=== PATIENT | female | born 1950 | race Caucasian/White ===

== ENCOUNTER 2019-10-26 15:32 | Outpatient (CLI) | payer MEDICARE, OTHER ==
--- NOTE | 2019-10-26 16:34 | XRAY Report ---
PROCEDURE: Lumbar Spine 2 View INDICATIONS: RADICULOPATHY LUMBAR REGION, CERVICALGIA TECHNIQUE: 2 views of the lumbar spine were acquired. COMPARISON: None. FINDINGS: Bones: 5 [id number] vertebrae are present. There is grade 1 degenerative anterolisthesis of L4 on L5 which measures approximately 1 cm. The other vertebral bodies are normally aligned. Severe disc height loss at L4-L5 and L5-S1. Multilevel facet arthropathy. No vertebral body compression fracture s. No suspicious bony lesions. Soft tissues: Overlying bowel gas pattern is normal. No suspicious soft tissue calcifications. IMPRESSION: Multilevel degenerative disc disease and facet arthropathy. Grade 1 anterolisthesis of L 4 on L5. No evidence acute bony abnormality of the lumbar spine. If clinical suspicion and/or symptoms persist, further assessment with repeat plain films or advanced imaging (e.g., CT, MRI, or bone scan) may be helpful for further assessment. Reviewed by: Gerber Romero MD on 10/26/2019 4:33 PM PDT Approved by: Gerber Romero MD on 10/26/2019 4:33 PM PDT Station ID: [id number]
--- NOTE | 2019-10-26 16:40 | XRAY Report ---
PROCEDURE: Cervical Spine 2 View INDICATIONS: RADICULOPATHY LUMBAR REGION, CERVICALGIA TECHNIQUE: 4 view(s) of the cervical spine were acquired. COMPARISON: None. FINDINGS: Bones: No fractures or dislocations to the T1 level. The lateral masses of C1 appear intact on the odontoid view. No suspicious bony lesions. Multilevel cervical corpectomy extending from C4 through C7. ACDF with plate and screw fixation, with screws in C3 and C7. Multilevel posterior lateral rachel a nd pedicle screw fixation. No evidence of hardware failure or loosening. Soft tissues: No prevertebral soft tissue swelling. IMPRESSION: Extensive previous cervical surgery with no evidence of hardware failure or loosening. N o evidence of acute bony abnormality of the cervical spine. Reviewed by: Gerber Romero MD on 10/26/2019 4:39 PM PDT Approved by: Gerber Romero MD on 10/26/2019 4:39 PM PDT Station ID: [id number]
== END 2019-10-26 15:33 | disposition home or self-care (01) ==
LOC: DI 15:32
PROVIDERS: ATTEND Nurse Practitioner Family
DX: M54.2 Cervicalgia (principal); M43.16 Spondylolisthesis, lumbar region; M51.36 Other intervertebral disc degeneration, lumbar region; M51.37 Other intervertebral disc degeneration, lumbosacral region; M47.816 Spondylosis without myelopathy or radiculopathy, lumbar region
CPT/HCPCS: 72040; 72100

== ENCOUNTER 2021-01-24 14:33 | Outpatient (CLI) | payer MEDICARE, OTHER ==
[2021-01-24 14:53] LABS: BASOPHILS % (AUTO) 0.5 %; EOSINOPHILS # (AUTO) 0.1 10^3/uL (0.0-0.7); EOSINOPHILS % (AUTO) 1.3 %; HCT - HEMATOCRIT 41.2 % (37.0-47.0); HGB - HEMOGLOBIN 13.9 g/dL (12.0-16.0); LYMPHOCYTES # (AUTO) 1.3 10^3/uL (1.5-3.5); LYMPHOCYTES % (AUTO) 16.6 %; MEAN CORPUSCULAR HEMOGLOBIN 31.8 pg (27.0-31.0); MEAN CORPUSCULAR HGB CONC 33.7 g/dL (32.0-36.0); MEAN CORPUSCULAR VOLUME 94.3 fL (81.0-99.0); MONOCYTES # (AUTO) 0.6 10^3/uL (0.0-1.0); MONOCYTES % (AUTO) 7.2 %; NEUTROPHILS # (AUTO) 5.8 10^3/uL (1.5-6.6); NEUTROPHILS % (AUTO) 74.1 %; PLT - PLATELET COUNT 219 10^3/uL (130-450); RED BLOOD COUNT 4.37 10^6/uL (4.20-5.40); RED CELL DISTRIBUTION WIDTH 13.2 % (12.0-15.0); WHITE BLOOD COUNT 7.9 x10^3/uL (4.8-10.8)
[2021-01-24 15:12] LABS: ALBUMIN/GLOBULIN RATIO 1.4 (1.0-2.2); ALKALINE PHOSPHATASE 73 IU/L (42-121); ALT ALANINE AMINOTRANSFERASE 14 IU/L (10-60); AST ASPARTATE AMINOTRANSFERASE 15 IU/L (10-42); BILIRUBIN,TOTAL 0.7 mg/dL (0.2-1.0); BUN - BLOOD UREA NITROGEN 18 mg/dL (6-20); CALCIUM 9.5 mg/dL (8.5-10.3); CARBON DIOXIDE - CO2 28 mmol/L (21-32); CHLORIDE 104 mmol/L (101-111); CHOL/HDL RATIO 3.2 (<4.4); CHOLESTEROL 294 mg/dL; CREATININE 0.9 mg/dL (0.4-1.0); GFR - MDRD 62 (>89); GLUCOSE 95 mg/dL (70-100); HDL CHOLESTEROL 91 mg/dL; LDL CHOLESTEROL,CALCULATED 181 mg/dL; SODIUM 141 mmol/L (135-145); TOTAL PROTEIN 6.9 g/dL (6.7-8.2); TRIGLYCERIDES 108 mg/dL; VLDL CHOLESTEROL 22 mg/dL
[2021-01-24 16:07] LABS: BILIRUBIN,URINE NEGATIVE (NEGATIVE); CLARITY,URINE SL. CLOUDY (CLEAR); GLUCOSE, URINE (UA) NEGATIVE (NEGATIVE); KETONES,URINE (UA) NEGATIVE (NEGATIVE); LEUKOCYTE ESTERASE, URINE NEGATIVE (NEGATIVE); NITRITE,URINE NEGATIVE (NEGATIVE); OCCULT BLOOD,URINE SMALL (NEGATIVE); PROTEIN,URINE NEGATIVE (NEGATIVE); UROBILINOGEN,URINE 0.2 (NORMAL) E.U./dL (NORMAL)
== END 2021-01-24 14:34 | disposition home or self-care (01) ==
LOC: LAB 14:33
PROVIDERS: ATTEND Nurse Practitioner Family
DX: N95.0 Postmenopausal bleeding (principal); N93.9 Abnormal uterine and vaginal bleeding, unspecified; E78.00 Pure hypercholesterolemia, unspecified
CPT/HCPCS: 36415; 80053; 80061; 81003; 83721; 85025; 87086

== ENCOUNTER 2021-02-19 12:00 | Outpatient (CLI) | payer MEDICARE, OTHER | END 2021-02-19 12:01 | disposition critical access hospital (66) | LOC: EMS 12:00 | DX: R11.10 Vomiting, unspecified (principal); R44.3 Hallucinations, unspecified; R30.0 Dysuria; R61 Generalized hyperhidrosis | CPT/HCPCS: A0425; A0427 ==

== ENCOUNTER 2021-02-19 13:01 | Emergency (ER) | payer MEDICARE, OTHER ==
--- NOTE | 2021-02-19 13:11 | ED Physician Documentation ---
History of Present Illness - Stated complaint Stated Complaint: VOMITING/WEAKNESS - History obtained from History obtained from: Patient, EMS - Additonal information Additional information: 70-year-old woman with dementia but lives alone, presents by ambulance for potential UTI with sepsis. Was diagnosed with a UTI on January 24 or sent . Subsequent culture grew 10-50,000 colonies of polymicrobial growth. She was started on Bactrim, 3-day course. The prescription bottle was filled on the . That said she states she just finished yesterday, so the math does not quite add up. Over the last few days has developed chills and occasional visual hallucinations. She also has urinary frequency but no dysuria. Her stomach feels full but not painful. She denies new cough or shortness of breath noting that she always has a cough related to allergies. Review of Systems Ten Systems: 10 systems reviewed and negative Constitutional: reports: Chills, Fatigue. denies: Fever Cardiac: denies: Chest pain / pressure, Palpitations Respiratory: reports: Cough (Chronic). denies: Dyspnea GI: denies: Nausea, Vomiting, Diarrhea : reports: Frequency. denies: Dysuria PD PAST MEDICAL HISTORY - Present Medications Home Medications: Ambulatory Orders Medication Instructions Recorded Confirmed Ciprofloxacin [Cipro] 250 mg PO Q12H #10 tablet 02/19/21 Escitalopram [Lexapro] 40 mg PO DAILY 02/19/21 02/19/21 Fluoxetine HCl [Prozac] 80 mg PO DAILY 02/19/21 02/19/21 lamoTRIgine [Lamictal Xr] 300 mg PO HS 02/19/21 02/19/21 - Allergies Allergies/Adverse Reactions: Allergies Allergy/AdvReac Type Severity Reaction Status Date / Time Cephalosporins Allergy Unknown Verified 02/19/21 13:14 Penicillins Allergy Unknown Verified 02/19/21 13:14 PD ED PE NORMAL - Vitals Vital signs reviewed: Yes - General General: No acute distress, Other (She is alert and oriented to person and place but not time, decent for events.) - HEENT HEENT: PERRL, EOMI - Neck Neck: Supple, no meningeal sign, No bony TTP - Cardiac Cardiac: RRR, No murmur - Respiratory Respiratory: No respiratory distress, Clear bilaterally - Abdomen Abdomen: Normal bowel sounds, Soft, Non tender - Back Back: No CVA TTP, No spinal TTP - Derm Derm: Normal color, Warm and dry - Extremities Extremities: No edema, No calf tenderness / cord Results - Vitals Vitals: Vital Signs - 24 hr 02/19/21 02/19/21 13:10 15:14 Temperature 36.8 C 36.7 C Heart Rate 89 86 Respiratory 16 15 Rate Blood Pressure 123/53 L 150/87 H O2 Saturation 98 99 Oxygen O2 Source Room air - Labs Labs: Laboratory Tests 02/19/21 02/19/21 02/19/21 13:18 13:18 13:18 WBC 6.6 RBC 4.31 Hgb 13.8 Hct 40.3 MCV 93.5 MCH 32.0 H MCHC 34.2 RDW 13.5 Plt Count 215 MPV 8.0 Neut # (Auto) 5.3 Lymph # (Auto) 0.8 L Dane # (Auto) 0.5 Eos # (Auto) 0.0 Baso # (Auto) 0.0 Absolute Nucleated RBC 0.00 Nucleated RBC % 0.0 Sodium 134 L Potassium 3.7 Chloride 103 Carbon Dioxide 22 Anion Gap 9.0 BUN 19 Creatinine 0.8 Estimated GFR (MDRD) 71 L Glucose 108 H Lactic Acid 1.8 Calcium 9.1 Urine Color Urine Clarity Urine pH Ur Specific Stacy Urine Protein Urine Glucose (UA) Urine Ketones Urine Occult Blood Urine Nitrite Urine Bilirubin Urine Urobilinogen Ur Leukocyte Esterase Urine RBC Urine WBC Ur Epithelial Cells Ur Squamous Epith Cells Urine Bacteria Ur Microscopic Review Urine Culture Comments Nasal Adenovirus (PCR) Nasal B. parapertussis DNA (PCR) Nasal Coronavir 229E PCR Nasal Coronavir HKU1 PCR Nasal Coronavir NL63 PCR Nasal Coronavir OC43 PCR Nasal Enterovir/Rhinovir PCR Nasal Influenza B PCR Nasal Influenza A PCR Nasal Parainfluen 1 PCR Nasal Parainfluen 2 PCR Nasal Parainfluen 3 PCR Nasal Parainfluen 4 PCR Nasal RSV (PCR) Nasal B.pertussis DNA PCR Nasal C.pneumoniae (PCR) Balbir Human Metapneumo PCR Nasal M.pneumoniae (PCR) Nasal SARS-CoV-2 (PCR) 02/19/21 02/19/21 13:52 14:35 WBC RBC Hgb Hct MCV MCH MCHC RDW Plt Count MPV Neut # (Auto) Lymph # (Auto) Dane # (Auto) Eos # (Auto) Baso # (Auto) Absolute Nucleated RBC Nucleated RBC % Sodium Potassium Chloride Carbon Dioxide Anion Gap BUN Creatinine Estimated GFR (MDRD) Glucose Lactic Acid Calcium Urine Color YELLOW Urine Clarity CLEAR Urine pH 6.0 Ur Specific Stacy >=1.030 H Urine Protein NEGATIVE Urine Glucose (UA) NEGATIVE Urine Ketones 40 H Urine Occult Blood SMALL H Urine Nitrite NEGATIVE Urine Bilirubin NEGATIVE Urine Urobilinogen 1 (NORMAL) Ur Leukocyte Esterase SMALL H Urine RBC 11-25 H Urine WBC 6-10 H Ur Epithelial Cells FEW Transitional Ur Squamous Epith Cells MOD Squamous H Urine Bacteria Few Ur Microscopic Review INDICATED Urine Culture Comments NOT INDICATED Nasal Adenovirus (PCR) NOT DETECTED Nasal B. parapertussis DNA (PCR) NOT DETECTED Nasal Coronavir 229E PCR NOT DETECTED Nasal Coronavir HKU1 PCR NOT DETECTED Nasal Coronavir NL63 PCR NOT DETECTED Nasal Coronavir OC43 PCR NOT DETECTED Nasal Enterovir/Rhinovir PCR NOT DETECTED Nasal Influenza B PCR NOT DETECTED Nasal Influenza A PCR NOT DETECTED Nasal Parainfluen 1 PCR NOT DETECTED Nasal Parainfluen 2 PCR NOT DETECTED Nasal Parainfluen 3 PCR NOT DETECTED Nasal Parainfluen 4 PCR NOT DETECTED Nasal RSV (PCR) NOT DETECTED Nasal B.pertussis DNA PCR NOT DETECTED Nasal C.pneumoniae (PCR) NOT DETECTED Balbir Human Metapneumo PCR NOT DETECTED Nasal M.pneumoniae (PCR) NOT DETECTED Nasal SARS-CoV-2 (PCR) NOT DETECTED PD MEDICAL DECISION MAKING - ED course ED course: 70-year-old woman presents with chills in the setting of recent UTI. She is d emented and lives alone. Her vital signs are unremarkable as is her exam other than modest dementia. Her lab work is relatively unremarkable without evidence of leukocytosis, lactic acidosis. Urine is contaminated but does show leukocyte esterase white cells and red cells. Probably worth treating given her complaints of urinary frequency. That said she is certainly not septic and does not fit criteria for admission for the UTI per se. Her dementia and mental status is more consistent with exactly that, dementia than it is with encephalopathy or delirium. We will asked the social media specialist to see her to assess for safety given that she lives alone. We will check her for Covid given the Lymphopenia. Covid was negative. Social work saw her, reach out to family who is helping at home. Further efforts at in-home care versus placement were declined by the patient. I asked the social work place and APS referral as well. Departure - Departure Disposition: Home, Self Care Clinical Impression: Urinary tract infection Qualifiers: Urinary tract infection type: site unspecified Hematuria presence: without hematuria Qualified Code(s): N39.0 - Urinary tract infection, site not specified Dementia Qualifiers: Dementia type: unspecified type Dementia behavioral disturbance: without behavioral disturbance Qualified Code(s): F03.90 - Unspecified dementia without behavioral disturbance Condition: Good Record reviewed to determine appropriate education?: Yes Instructions: Urinary Tract Infecs Women, ED Dementia Caregiver Support Prescriptions: Ciprofloxacin [Cipro] 250 mg PO Q12H #10 tablet Comments: We found you to have a mild UTI today, no evidence of sepsis or other serious illness. You were negative for Covid. We are concerned about your ability to live alone given that your memory seems to be failing you. Please consider what you will do and what will happen if your memory continues to go downhill which it likely will. To that end we are also filing a report with Adult Protective Services so that they can check on you and we have contacted your family as well. Follow-up with your primary care physician, next available appointment. Return for new or worsening symptoms.
[2021-02-19 13:28] LABS: BASOPHILS % (AUTO) 0.3 %; EOSINOPHILS % (AUTO) 0.3 %; HCT - HEMATOCRIT 40.3 % (37.0-47.0); HGB - HEMOGLOBIN 13.8 g/dL (12.0-16.0); LYMPHOCYTES # (AUTO) 0.8 10^3/uL (1.5-3.5); LYMPHOCYTES % (AUTO) 11.8 %; MEAN CORPUSCULAR HGB CONC 34.2 g/dL (32.0-36.0); MEAN CORPUSCULAR VOLUME 93.5 fL (81.0-99.0); MONOCYTES # (AUTO) 0.5 10^3/uL (0.0-1.0); NEUTROPHILS # (AUTO) 5.3 10^3/uL (1.5-6.6); NEUTROPHILS % (AUTO) 80.3 %; PLT - PLATELET COUNT 215 10^3/uL (130-450); RED BLOOD COUNT 4.31 10^6/uL (4.20-5.40); RED CELL DISTRIBUTION WIDTH 13.5 % (12.0-15.0); WHITE BLOOD COUNT 6.6 x10^3/uL (4.8-10.8)
[2021-02-19 13:59] LABS: GLUCOSE, URINE (UA) NEGATIVE (NEGATIVE); KETONES,URINE (UA) 40 mg/dL (NEGATIVE); LEUKOCYTE ESTERASE, URINE SMALL (NEGATIVE); NITRITE,URINE NEGATIVE (NEGATIVE); OCCULT BLOOD,URINE SMALL (NEGATIVE); PROTEIN,URINE NEGATIVE (NEGATIVE); UROBILINOGEN,URINE 1 (NORMAL) E.U./dL (NORMAL)
[2021-02-19 14:04] LABS: BILIRUBIN,URINE NEGATIVE (NEGATIVE); CLARITY,URINE CLEAR (CLEAR); ICTOTEST,URINE NEGATIVE
[2021-02-19 14:15] LABS: BACTERIA,URINE Few /HPF (None Seen); EPITHELIAL CELLS,UR FEW Transitional /HPF (<= Few); SQUAMOUS EPITHELIAL CELL,UR MOD Squamous (<= Few)
[2021-02-19 14:24] LABS: CALCIUM 9.1 mg/dL (8.5-10.3); CREATININE 0.8 mg/dL (0.4-1.0); POTASSIUM 3.7 mmol/L (3.5-5.0)
[2021-02-19] MEDS ORDERED: CIPROFLOXACIN 250 MG TABLET PO STA (14:36)
[2021-02-19 15:36] LABS: B. PARAPERTUSSIS- RESP PCR PAN NOT DETECTED; B. PERTUSSIS- RESP PCR PANEL NOT DETECTED; C. PNEUMONIAE- RESP PCR PANEL NOT DETECTED; CORONAVIRUS 229E-RESP PCR NOT DETECTED; CORONAVIRUS HKU1-RESP PCR NOT DETECTED; CORONAVIRUS NL63-RESP PCR NOT DETECTED; CORONAVIRUS OC43-RESP PCR NOT DETECTED; HUMAN METAPNEUMOVIRUS NOT DETECTED; INFLUENZA A- RESP PCR PANEL NOT DETECTED; INFLUENZA B - RESP PCR PANEL NOT DETECTED; M. PNEUMONIAE- RESP PCR PANEL NOT DETECTED; PARAINFLUENZA VIRUS 1 NOT DETECTED; PARAINFLUENZA VIRUS 2 NOT DETECTED; PARAINFLUENZA VIRUS 3 NOT DETECTED; PARAINFLUENZA VIRUS 4 NOT DETECTED; RHINOVIRUS/ENTEROVIRUS NOT DETECTED; RSV- RESP PCR PANEL NOT DETECTED; SARS-CoV-2 -RESP PCR PANEL NOT DETECTED
[2021-02-19 17:05] VITALS: BP 135/75
== END 2021-02-19 16:55 | disposition home or self-care (01) ==
LOC: EDUNIT# → ED 13:01
DX: N39.0 Urinary tract infection, site not specified (principal); F03.90 Unspecified dementia, unspecified severity, without behavioral disturbance, psychotic disturbance, mood disturbance, and anxiety; Z20.822 Contact with and (suspected) exposure to COVID-19
CPT/HCPCS: 36415; 80048; 81001; 83605; 85025; 87631; 99283; 99284; A9270; 0202U; 81003; 87086

== ENCOUNTER 2023-01-03 08:04 | Outpatient (CLI) | payer MEDICARE, OTHER | END 2023-01-03 08:05 | disposition critical access hospital (66) | LOC: EMS 08:04 | DX: M54.50 Low back pain, unspecified (principal); W18.39XA Other fall on same level, initial encounter; Y93.E1 Activity, personal bathing and showering; Y92.091 Bathroom in other non-institutional residence as the place of occurrence of the external cause | CPT/HCPCS: A0425; A0429 ==

== ENCOUNTER 2023-01-03 08:30 | Emergency (ER) | payer MEDICARE, OTHER ==
--- NOTE | 2023-01-03 09:06 | ED Physician Documentation ---
PD HPI BACK PAIN - Stated complaint Stated Complaint: R LOW BACK PX - Chief complaint Chief Complaint: Trauma Ch/Bk - History obtained from History obtained from: Patient - Additional information Additional information: Patient is a 72-year-old female presenting for evaluation of right lower back pain that is been present for 2 days since she slipped and fell in the shower. Patient reports falling due to water in the tub and fell onto her backside. She denies hitting her head or having LOC. She called for help from staff at her assisted living facility and they helped her up. Since then she reports increased pain to the area. She has been using Flexeril without any improvement. Pain does not radiate elsewhere. She denies saddle anesthesia, bowel or bladder incontinence. She does not take a blood thinner. 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 : None HEENT: None Psych: Depression Derm: None - Past Surgical History Past Surgical History: Yes General: Cholecystectomy Ortho: Spine surgery - Present Medications Home Medications: Ambulatory Orders Medication Instructions Recorded Confirmed Escitalopram [Lexapro] 40 mg PO DAILY 02/19/21 01/03/23 Fluoxetine HCl [Prozac] 80 mg PO DAILY 02/19/21 01/03/23 lamoTRIgine [Lamictal Xr] 300 mg PO HS 02/19/21 01/03/23 Gabapentin 400 mg PO DAILY 01/03/23 01/03/23 HYDROcod/ACETAM 5/325 [Jarales 5/325] 1 tablet PO Q6H PRN #14 tablet 01/03/23 Lidocaine Patch 5% [Lidoderm Patch] 1 patch TOP DAILY PRN #10 patch 01/03/23 - Allergies Allergies/Adverse Reactions: Allergies Allergy/AdvReac Type Severity Reaction Status Date / Time Cephalosporins Allergy Unknown Verified 02/19/21 13:14 Penicillins Allergy Unknown Verified 02/19/21 13:14 - Social History Does the pt smoke?: No Smoking Status: Never smoker Does the pt drink ETOH?: No Does the pt have substance abuse?: No PD ED PE NORMAL - General General: Alert and oriented X 3, No acute distress, Well developed/nourished - HEENT HEENT: Atraumatic, PERRL, EOMI - Neck Neck: Supple, no meningeal sign, No bony TTP, C-Spine cleared by NEXUS criteria - Cardiac Cardiac: RRR, No murmur, Strong equal pulses - Respiratory Respiratory: No respiratory distress, Clear bilaterally - Abdomen Abdomen: Soft, Non tender, Non distended - Back Back: No spinal TTP, Other (Right paralumbar tenderness to palpation with no deformities noted) - Derm Derm: Warm and dry - Extremities Extremities: No deformity, No tenderness to palpate, Other (Good range of motion of right hip) - Neuro Neuro: Alert and oriented X 3, No motor deficit, No sensory deficit, Normal speech Eye Opening: Spontaneous Motor: Obeys Commands Verbal: Oriented GCS Score: 15 Results - Vitals Vitals: Vital Signs - 24 hr 01/03/23 01/03/23 01/03/23 08:35 08:37 10:37 Temperature 36.5 C Heart Rate 85 83 83 Respiratory 14 14 15 Rate Blood Pressure 143/78 H 105/68 126/58 L O2 Saturation 96 95 92 01/03/23 01/03/23 01/03/23 10:58 12:00 13:45 Temperature 36.8 C Heart Rate 81 81 78 Respiratory 20 15 20 Rate Blood Pressure 126/58 L 120/63 122/72 O2 Saturation 97 98 99 Oxygen O2 Source Room air PD Medical Decision Making - ED course Complexity details: reviewed results, re-evaluated patient, d/w patient ED course: Patient is a 72-year-old female presenting for evaluation of back pain after a fall 2 days ago that appears to be a slip and fall. No reported head injury or LOC and she is not on a blood thinner. She does have point tenderness to the right lower back. She has good range of motion of bilateral hips. Due to prior hip surgery I did obtain an x-ray of the right hip which shows hardware intact. A CT of the L-spine was also obtained which shows a subacute L1 compression fracture. This correlates to her area of pain. Patient did have improvement in her symptoms with IM Dilaudid and oral pain medication and was able to ambulate with a walker here. She will return to her assisted living facility and was counseled on need for close follow-up as well as concerning symptoms to return for. Departure - Departure Disposition: 01 Home, Self Care Clinical Impression: Compression fracture of L1 lumbar vertebra Condition: Stable Instructions: ED Fx Comp Vertebral Follow-Up: RIOS CONNER ARNP [Primary Care Provider] - Prescriptions: Lidocaine Patch 5% [Lidoderm Patch] 1 patch TOP DAILY PRN #10 patch PRN Reason: pain HYDROcod/ACETAM 5/325 [Jarales 5/325] 1 tablet PO Q6H PRN #14 tablet PRN Reason: Pain Comments: It appears that you have a compression fracture at L1 which is likely the reason for your pain. I am sending a prescription of pain medications to [facility] in [place]. You may feel more steady using a walker while this heals. I would recommend close follow-up with your primary care provider. I am prescribing a short course of narcotic pain medication for you. These are potentially dangerous and addictive medications that should be used carefully. These medications may constipate you. Take an wgvo-mhp-kdavrdy stool softener (docusate) twice daily with plenty of water while taking these medications. If you go 24 hours without a bowel movement, take [id number] miralax, per package instructions. Do not drink or drive while taking these medications. If you received narcotic or sedating medications while in the emergency department, do not drive for 24 hours. Store this medication in a safe, secure place and out of reach of children. It is a violation of federal law to give or sell this medication to another person or to use in a manner other than prescribed. The ED will not refill narcotic prescriptions, including prescriptions lost or stolen. To dispose of unwanted medications: 1. [facility] at [address] in [place] has a medication drop box. They accept prescription medications (in pill form) Saturday through Saturday 9:00 a.m. to 5:00 p.m. 2. The [facility] [place] [employer] accepts prescription medications (in pill form only) for disposal year round. Call for more information. 3. Contact the [facility] for the next [facility] sponsored prescription drug collection event. , [phone], or [phone]; Note that many narcotic pain relievers also contain Tylenol/acetaminophen. Please ensure that your total dose of acetaminophen from all sources does not exceed 3 g (3000 mg) per day. IMPRESSION: Suspected subacute compression deformity at L1. Recommend correlation of point tenderness. Forms: PCP List Discharge Date/Time: 01/03/23 13:46
--- OUTSIDE RECORDS SUMMARY | 2023-01-03 09:20 | EXTERNAL MEDICAL SUMMARY RPT | Continuity of Care Document ---
Author Name Unknown Address [address] [place] [address] Phone Organization Reading Address [address] [place] [id number] Phone Allergies and Intolerances date description facility reaction severity (no date) OPIOIDS - MORPHINE ANALOGUES [facility] Alisia Joseph (no reaction) (no severity) (no date) Anaphylaxis [facility] (no reaction) (no severity) (no date) Itching [facility] (no reaction) (no severity) (no date) PENICILLINS [facility] (no reaction) (no severity) (no date) CEPHALOSPORINS [facility] (no reaction) (no severity) Medications date description facility 2022-10-28 00:00 oxycodone hcl 5 mg oral tablet [facility] 2022-10-29 00:00 lidocaine 0.04 mg/mg medicated patch [facility] 2022-11-05 00:00 lamotrigine 150 mg oral tablet [facility] 2022-12-06 00:00 lamotrigine 150 mg oral tablet [facility] 2022-10-29 00:00 magnesium oxide 400 mg oral tab let [facility] 2022-10-29 00:00 vitamin d3 1000 unt oral tablet [facility] 2022-10-28 00:00 melatonin 1 mg oral tablet [facility] 2022-10-28 00:00 alprazolam 0.25 mg oral tablet [facility] 2022-12-06 00:00 ciprofloxacin 500 mg oral table t [facility] 2022-10-29 00:00 ferrous sulfate 325 mg (iron 65 mg) oral tablet [facility] 2022-10-28 00:00 gabapentin 300 mg oral capsule [facility] 2022-10-28 00:00 acetaminophen 325 mg oral table t [facility] 2022-11-05 00:00 fluoxetine 40 mg [facility]:00 fluoxetine 40 mg oral capsule F [facility] 2022-10-28 00:00 pantoprazole sodium 40 mg delayed release oral tablet [facility] 2022-12-06 00:00 pantoprazole sodium 40 mg delayed release oral tablet [facility] 2022-11-05 00:00 escitalopram (as esc italopram oxalate) 20 mg oral tablet [facility] 2022-12-06 00:00 escitalopram (as esc italopram oxalate) 20 mg oral tablet [facility] 2022-10-29 00:00 calcium 250 mg / vit rose d3 125 unt oral tablet, as calcium carbonate [facility] 2022-10-28 00:00 cyclobenzaprine hydr ochloride 5 mg oral tablet [facility] 2022-10-28 00:00 enoxaparin sodium 30 mg in 0.3 ml prefilled syringe [facility] 2022-10-30 00:00 hydromorphone hcl 4 mg oral tab let [facility] Problems date description facility 2022-10-20 00:00 increased qt interval Shayla mayfield [facility] 2022-10-20 00:00 closed fracture prox imal femur, intertrochanteric, comminuted (disorder) [facility] 2022-10-20 00:00 lbbb - left bundle branch block [facility] 2022-10-20 00:00 fracture of bone of hip region (disorder) [facility] 2022-10-20 00:00 chronic pain (finding) Clare duran [facility] 2022-10-20 00:00 closed intertrochant aris fracture (disorder) [facility] 2022-10-20 00:00 [facility]:00 LBBB (left bundle branch block) [facility] 2022-10-20 00:00 Prolonged Q-T interval on ECG F meridariorenee [facility] 2022-10-20 00:00 Hip fracture [facility] 2022-10-20 00:00 Closed comminuted in tertrochanteric fracture of proximal end of right femur [facility] 2022-10-20 00:00 Closed nondisplaced intertrochanteric fracture of right femur, initial encounter [facility] 2022-10-22 00:00 infective pneumonia (disorder) [facility] 2022-10-22 00:00 acute respiratory failure (diso rder) [facility] 2022-10-22 00:00 Pneumonia due to infectious org anism [facility] 2022-10-22 00:00 Acute respiratory failure with hypoxia [facility] 2022-10-23 00:00 leukocytosis (disorder) [facility] 2022-10-23 00:00 Leukocytosis [facility] Social History date description facility 2022-11-05 00:00 Tobacco smoking consumption unk nown [facility] 2022-12-06 00:00 Current smoker [facility] 2022-12-06 00:00 Ex-smoker [facility] Vital Signs date measurement value units 2022-11-05 00:00 BMI 26.88 kg/m2 2022-11-05 00:00 BP_diastolic 60 mmHg 2022-11-05 00:00 BP_systolic 118 mmHg 2022-11-05 00:00 heart_rate 44 /min 2022-11-05 00:00 height_metric 157.5 cm 2022-11-05 00:00 height_standard 62.01 in 2022-11-05 00:00 o2_saturation 93 % 2022-11-05 00:00 respiration_rate 18 /min 2022-11-05 00:00 temperature_metric 36.67 C 2022-11-05 00:00 temperature_standard 98.01 F 2022-11-05 00:00 weight_metric 66.68 kg 2022-11-05 00:00 weight_standard 147 lb 2022-12-06 00:00 BMI 23.78 kg/m2 2022-12-06 00:00 heart_rate 80 /min 2022-12-06 00:00 height_metric 157.5 cm 2022-12-06 00:00 height_standard 62.01 in 2022-12-06 00:00 o2_saturation 94 % 2022-12-06 00:00 respiration_rate 18 /min 2022-12-06 00:00 temperature_metric 36.67 C 2022-12-06 00:00 temperature_standard 98.01 F 2022-12-06 00:00 weight_metric 58.97 kg 2022-12-06 00:00 weight_standard 130 lb
[2023-01-03] MEDS: LIDOCAINE PATCH 5% TOP STA ×2 (09:24→09:32)
--- NOTE | 2023-01-03 09:24 | XRAY Report ---
PROCEDURE: Hip w/Pelvis 2-3V RT INDICATIONS: fall/pain TECHNIQUE: AP pelvis with lateral view(s) of the right hip(s). COMPARISON: None. FINDINGS: Bones: No fractures or dislocations. No suspicious bony lesions. Right femoral fixation is presen t. Hardware is intact without evidence of hardware fracture or periprosthetic lucency to suggest loos ening. Soft tissues: No suspicious soft tissue calcifications or masses. IMPRESSION: Right hip fixation. No visualized acute fracture or dislocation. However, occult injury cannot be exc luded. Recommend short interval imaging follow-up in 7-10 days as clinically indicated for additional evaluation. Reviewed by: Charlene Payne MD on 01/03/2023 9:23 AM PDT Approved by: Charlene Payne MD on 01/03/2023 9:23 AM PDT Station ID: [id number]
--- NOTE | 2023-01-03 11:06 | CT Report ---
PROCEDURE: LUMBAR SPINE WO INDICATIONS: fall/pain TECHNIQUE: Noncontrast 3 mm thick sections acquired from the T12 level to the sacrum. Sagittal and coronal refo rmats were constructed. For radiation dose reduction, the following was used: automated exposure co ntrol, adjustment of mA and/or kV according to patient size. COMPARISON: None. FINDINGS: Image quality: Excellent. Bones: There is trace anterolisthesis of L4 on L5 and trace retrolisthesis of L5 on S1. There is com pression deformity at L1 measuring 48%. It is new compared to 2020. Small areas of irregularity are n oted within the cortex on axial view suggestive of subacute etiology. No paravertebral fluid or hemat león. Multilevel degenerative changes are present most severe at L5-S1 Soft tissues: No retroperitoneal masses or hematomas. Visualized aorta is normal in caliber. IMPRESSION: Suspected subacute compression deformity at L1. Recommend correlation of point tenderness. Reviewed by: Charlene Payne MD on 01/03/2023 11:05 AM PDT Approved by: Charlene Payne MD on 01/03/2023 11:05 AM PDT Station ID: [id number]
[2023-01-03] MEDS ORDERED: HYDROcod/ACETAM 5/325 MG TABLET PO STA (11:37)
[2023-01-03] MEDS ORDERED: LIDOCAINE PATCH 5% TOP STA (11:37)
[2023-01-03] MEDS ORDERED: HYDROmorphone 1 MG/ML CARPUJECT IM STA (12:50)
[2023-01-03 13:50] VITALS: BP 122/72; O2SAT 99
== END 2023-01-03 13:46 | disposition home or self-care (01) ==
LOC: EDUNIT# → ED 08:30
DX: S32.010A Wedge compression fracture of first lumbar vertebra, initial encounter for closed fracture (principal); W18.2XXA Fall in (into) shower or empty bathtub, initial encounter; F03.90 Unspecified dementia, unspecified severity, without behavioral disturbance, psychotic disturbance, mood disturbance, and anxiety; Z79.899 Other long term (current) drug therapy
CPT/HCPCS: 72131; 73502; 96372; 99283; 99284; A9270; J1170